=== PATIENT | female | born 1965 | race Caucasian/White ===

== ENCOUNTER 2021-09-29 21:15 | Emergency (ER) | payer MEDICAID ==
[~2021-09-29] VITALS: Ht 167.6 cm; Wt 91.0 kg
[2021-09-29 21:19] VITALS: BP 150/90
== END 2021-09-30 01:34 ==
LOC: ER 21:15
DX: M25.512 Pain in left shoulder (principal); E11.9 Type 2 diabetes mellitus without complications; K21.9 Gastro-esophageal reflux disease without esophagitis; I10 Essential (primary) hypertension; Z86.73 Personal history of transient ischemic attack (TIA), and cerebral infarction without residual deficits
CPT/HCPCS: 43762; 99284